=== PATIENT | female | born 1975 | race Caucasian/White ===

== ENCOUNTER 2017-04-03 12:36 | Emergency (ER) | payer OTHER ==
--- NOTE | 2017-04-03 13:12 | CPEKG ---
Heart Rate: 54 RR Interval: 1111 P-R Interval: 156 QRSD Interval: 92 QT Interval: 472 QTC Interval: 448 P [place]: 71 QRS [place]: 50 T Wave [place]: 58 EKG Severity - BORDERLINE ECG - EKG Impression: SINUS RHYTHM EKG Impression: BORDERLINE R WAVE PROGRESSION, ANTERIOR LEADS Electronically Signed By: Barney Brasher 03-Apr-2017 14:04:16
[2017-04-03] MEDS ORDERED: NS 1,000 ML IV ONE (13:56)
[2017-04-03] MEDS ORDERED: ASPIRIN 81 MG CHEWABLE TAB PO ONE (13:56)
--- NOTE | 2017-04-03 14:03 | EDPHY ---
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 She states that it began last night and she is soon that was stress from her work. She states that this is happened her several times over the last few months. She was exercising and went for a jog yesterday did not have any symptoms then. She states that she frequently exercises without difficulty. For which she will this morning her symptoms on however after she got up and walked around the house little bit her cramping pain continued. She became diaphoretic and short of breath at palpitations and her daughter brought her to the emergency department. She has not been febrile or had recent illness. She has not traveled. She does not have any known cardiac or pulmonary disease. She does not take any medications other than hormone injection. Not smoking. No leg pain or swelling. REVIEW OF SYSTEMS: Constitutional: denies: chills, fever, recent illness, recent injury EENTM: denies: blurred vision, double vision, nose congestion Respiratory: See HPI Cardiac: See HPI Gastrointestinal/Abdominal: denies: abdominal pain, diarrhea, nausea, vomiting, blood streaked stools Genitourinary: denies: dysuria, frequency, hematuria, pain Musculoskeletal: denies: joint pain, muscle pain Skin: denies: lesions, rash, jaundice, bruising Neurological: denies: headache, numbness, paresthesia, tingling, dizziness, weakness Hematologic/Lymphatic: denies: blood clots, easy bleeding, easy bruising Immunologic/allergic: denies: HIV/AIDS, transplant EXAM: GENERAL: Well-appearing, overweight and in no acute distress. HEAD: Atraumatic, normocephalic. EYES: Pupils equal round and reactive to light, extraocular movements intact, sclera anicteric, conjunctiva are normal. ENT: TMs normal, nares patent, oropharynx clear without exudates. Moist mucous membranes. NECK: Normal range of motion, supple without lymphadenopathy or JVD. LUNGS: Breath sounds clear to auscultation bilaterally and equal. No wheezes rales or rhonchi. HEART: Regular rate and rhythm without murmurs, rubs or gallops. ABDOMEN: Soft, nontender, normoactive bowel sounds. No guarding, no rebound. No masses appreciated. BACK: No CVA tenderness, no spinal tenderness, step-offs or deformities EXTREMITIES: Normal range of motion, no pitting or edema. No clubbing or cyanosis. NEUROLOGICAL: Cranial nerves II through XII grossly intact. Normal speech, normal gait. 5/5 strength, normal movement in all extremities, normal sensation PSYCH: Normal mood, normal affect. SKIN: Warm, dry, normal turgor, no visible rashes or lesions. Source: Patient Exam Limitations: No limitations - Personal History LMP (Females 10-55): 8-14 Days Ago Current Tetanus Diphtheria and Acellular Pertussis (TDAP): No - Medical/Surgical History Hx Asthma: No Hx Chronic Respiratory Disease: No Hx Diabetes: No Hx Cardiac Disease: No Hx Renal Disease: No Hx Cirrhosis: No - Family History Significant Family History: No pertinent family hx - Social History Smoking Status: Never smoked Alcohol Use: Sober Drug Use: None Constitutional: Initial Vital Signs Temperature (C) 36.5 C 04/03/17 12:40 Heart Rate 66 04/03/17 12:40 Respiratory Rate 16 04/03/17 12:40 Blood Pressure 135/89 H 04/03/17 12:40 O2 Sat (%) 100 04/03/17 12:40 O2 Delivery Mode Room Air Allergies/Adverse Reactions: No Known Allergies Allergy (Unverified 04/03/17 12:39) Home Medications: Medication Instructions Recorded Bc Implant 04/03/17 LORazepam [Ativan 1 mg (RX)] 1 mg PO Q6-8PRN PRN #7 tab 04/03/17 Medical Decision Making - Diagnostics EKG Interpretation: An EKG obtained and was read and documented in trace view. Please see trace view for full reading and report. Sinus rhythm, no acute ischemic changes Imaging Results: Imaging Impressions Chest X-Ray 04/03/17 13:57 Impression: Normal chest. Imaging: Discussed imaging studies w/ linux kernel developer Radiologist ED Course/Re-evaluation: 2:45 p.m. the patient is feeling much better. She states that her symptoms have resolved she thinks it is from stress. We discussed her lab work and imaging. We are still pending troponin. 3:10 p.m. we discussed her negative troponin which is reassuring considering the duration of her symptoms. I did offer to do a repeat troponin and keep her knob since she had I resolution of her symptoms during the stable manager hours of today. She declines however he would like to go home. I will have her follow up with lab tech for stress testing. She thinks that stress and anxiety or the main problem. I will give her some Ativan to take p.r.n. to see if this helps. Differential Diagnosis: Partial list of the Differential diagnosis considered include but were not limited to; chest pain, anxiety, PE , musculoskeletal pain and although unlikely based on the history and physical exam, I also considered dissection, pneumonia, reflux, peptic ulcer disease, biliary disease. I discussed these differential diagnoses and the plan with the patient as well as the usual and expected course. The patient understands that the diagnosis is provisional and that in medicine we are not always correct and that further workup is often warranted. Usual and customary warnings were given. All of the patient's questions were answered. The patient was instructed to return to the emergency department should the symptoms at all worsen or return, otherwise to followup with the physician as we discussed. - Data Points Laboratory Results: Laboratory Results 04/03/17 13:05 04/03/17 13:05 04/03/17 04/03/17 04/03/17 13:05 13:05 13:05 WBC RBC Hgb Hct MCV MCH MCHC RDW Plt Count MPV Neut % (Auto) Lymph % (Auto) Barren % (Auto) Eos % (Auto) Baso % (Auto) Nucleat RBC Rel Count Absolute Neuts (auto) Absolute Lymphs (auto) Absolute Monos (auto) Absolute Eos (auto) Absolute Basos (auto) Absolute Nucleated RBC Immature Gran % Immature Gran # PT 13.2 SEC SEC (12.0-15.0) INR 0.98 (0.83-1.16) APTT 27.1 SEC SEC (23.0-38.0) D-Dimer < 0.27 ug/mLFEU ug/mLFEU (0.00-0.50) Sodium 142 mEq/L mEq/L (134-144) Potassium 5.0 mEq/L mEq/L (3.5-5.2) Chloride 106 mEq/L mEq/L (97-110) Carbon Dioxide 23 mEq/l mEq/l (22-31) Anion Gap 13 mEq/L mEq/L (8-16) BUN 17 mg/dL mg/dL (7-23) Creatinine 0.8 mg/dL mg/dL (0.6-1.0) Estimated GFR > 60 Glucose 86 mg/dL mg/dL (70-100) Calcium 9.6 mg/dL mg/dL (8.5-10.4) Total Bilirubin 0.7 mg/dL mg/dL (0.1-1.4) Conjugated Bilirubin 0.6 mg/dL H mg/dL (0.0-0.5) Unconjugated Bilirubin 0.1 mg/dL mg/dL (0.0-1.1) AST 32 IU/L IU/L (14-46) ALT 25 IU/L IU/L (9-52) Alkaline Phosphatase 74 IU/L IU/L (38-126) Troponin I < 0.012 ng/mL ng/mL (0.000-0.034) Total Protein 7.8 g/dL g/dL (6.3-8.2) Albumin 4.7 g/dL g/dL (3.5-5.0) Lipase 204 IU/L IU/L (23-300) Beta HCG, Qual NEGATIVE Specimen Hemolysis 113 04/03/17 13:05 WBC 10.30 10^3/uL H 10^3/uL (3.80-9.50) RBC 5.10 10^6/uL 10^6/uL (4.18-5.33) Hgb 16.2 g/dL g/dL (12.6-16.3) Hct 47.3 % H % (38.0-47.0) MCV 92.7 fL fL (81.5-99.8) MCH 31.8 pg pg (27.9-34.1) MCHC 34.2 g/dL g/dL (32.4-36.7) RDW 13.0 % % (11.5-15.2) Plt Count 266 10^3/uL 10^3/uL (150-400) MPV 11.0 fL fL (8.7-11.7) Neut % (Auto) 53.9 % % (39.3-74.2) Lymph % (Auto) 35.9 % % (15.0-45.0) Barren % (Auto) 6.7 % % (4.5-13.0) Eos % (Auto) 2.1 % % (0.6-7.6) Baso % (Auto) 0.8 % % (0.3-1.7) Nucleat RBC Rel Count 0.0 % % (0.0-0.2) Absolute Neuts (auto) 5.55 10^3/uL 10^3/uL (1.70-6.50) Absolute Lymphs (auto) 3.70 10^3/uL H 10^3/uL (1.00-3.00) Absolute Monos (auto) 0.69 10^3/uL 10^3/uL (0.30-0.80) Absolute Eos (auto) 0.22 10^3/uL 10^3/uL (0.03-0.40) Absolute Basos (auto) 0.08 10^3/uL 10^3/uL (0.02-0.10) Absolute Nucleated RBC 0.00 10^3/uL 10^3/uL (0-0.01) Immature Gran % 0.6 % % (0.0-1.1) Immature Gran # 0.06 10^3/uL 10^3/uL (0.00-0.10) PT INR APTT D-Dimer Sodium Potassium Chloride Carbon Dioxide Anion Gap BUN Creatinine Estimated GFR Glucose Calcium Total Bilirubin Conjugated Bilirubin Unconjugated Bilirubin AST ALT Alkaline Phosphatase Troponin I Total Protein Albumin Lipase Beta HCG, Qual Specimen Hemolysis Medications Given: Discontinued Medications Aspirin (Aspirin) 324 mg PO EDNOW ONE Stop: 04/03/17 13:57 Last Admin: 04/03/17 14:01 Dose: 324 mg Sodium Chloride (Ns) 1,000 mls @ 0 mls/hr IV EDNOW ONE; Wide Open PRN Reason: Protocol Stop: 04/03/17 13:57 Last Admin: 04/03/17 14:02 Dose: 1,000 mls Departure - Departure Disposition: Home, Routine, Self-Care Clinical Impression: Chest pain Condition: Fair Instructions: Chest Pain (ED) Referrals: Jess Ballesteros MD [Primary Care Provider] - As per Instructions Brandon Byrd MD [Medical Doctor] - 2-3 days without fail Prescriptions: LORazepam [Ativan 1 mg (RX)] 1 mg PO Q6-8PRN PRN #7 tab PRN Reason: *Anxiety/Agitation/Insomnia
[2017-04-03 14:40] LABS: PLATELET COUNT 266 10^3/uL (150-400)
[2017-04-03 14:55] LABS: INR 0.98 (0.83-1.16); PROTIME(PATIENT) 13.2 SEC (12.0-15.0)
[2017-04-03 15:20] VITALS: BP 103/73; PULSE 52; RESP 16; TEMP 98.1; O2SAT 95
== END 2017-04-03 15:25 | disposition home or self-care (01) ==
DX: R07.9 Chest pain, unspecified (principal); E86.9 Volume depletion, unspecified